=== PATIENT | male | born 1965 | race African-American/Black ===

== ENCOUNTER 2023-09-29 16:01 | Emergency (ER) | payer SELFPAY ==
[2023-09-29 16:16] VITALS: BP 168/103
[2023-09-29 16:18] LABS: Glucose - Point of Care 111 mg/dl (70-99)
[2023-09-29 16:29] VITALS: BP 161/97
[2023-09-29 16:38] LABS: % Basophils 0.7 % (0-2); % Eosinophils 3.7 % (0-6); % Immature Granulocytes 0.3 % (0-0.5); % Lymphocytes 48.8 % (20.5-51.1); % Monocytes 10.2 % (1.7-9.3); % Neutrophils 36.3 % (42.2-75.2); Absolute Basophils 0.1 10^3/uL (0-0.2); Absolute Eosinophils 0.3 10^3/uL (0-0.7); Absolute Lymphocytes 3.5 10^3/uL (1.2-3.4); Absolute Monocytes 0.7 10^3/uL (0.1-0.6); Absolute Neutrophils 2.6 10^3/uL (1.4-6.5); Hematocrit 37.7 % (39.0-52.0); Hemoglobin 13.1 g/dL (13.0-18.0); Mean Corp Hgb Conc. 34.7 g/dL (33.0-37.0); Mean Corpuscular Hgb 30.2 pg (27.0-31.0); Mean Corpuscular Volume 86.9 fL (80.0-94.0); Mean Platelet Volume 9.2 fL (7.4-10.4); Nucleated Red Blood Cells % 0 % (-); Platelet Count 250 10^3/uL (130-400); Red Blood Cell Count 4.34 10^6/uL (4.70-6.10); Red Cell Dist. Width 14.1 % (11.5-14.5); White Blood Cell Count 7.2 10^3/uL (4.8-10.8)
[2023-09-29 16:46] LABS: ALT (SGPT) 17 U/L (0-50); AST (SGOT) 24 U/L (17-59); Albumin 3.6 g/dl (3.5-5.0); Alkaline Phosphatase 58 U/L (38-126); Blood Urea Nitrogen 21 mg/dl (9-20); Calcium 9.8 mg/dl (8.4-10.2); Carbon Dioxide 30 mmol/L (22-30); Chloride 102 mmol/L (98-107); Glucose 104 mg/dl (70-99); Potassium 3.9 mmol/L (3.5-5.1); Sodium 135 mmol/L (135-145); Total Bilirubin 0.4 mg/dl (0.2-1.3); Total Protein 6.3 g/dl (6.3-8.2); eGFR > 60.00
[2023-09-29 16:57] VITALS: BP 163/97
--- NOTE | 2023-09-29 17:00 | ED.GENMED ---
History of Present Illness
General
Chief Complaint: Crisis Evaluation
Source: patient and other ([employer]ist's)
Exam Limitations: none
Time Seen by Provider: 09/29/23 16:16
History of Present Illness
History of Present Illness:
58-year-old male who was transported from [place] up to long term in [facility] and was seen by the long term staff and realized his blood pressure was high he was sent to Emergency Department for evaluation. Patient reports no complaints. He states
he has history of insulin-dependent diabetes. The patient states that he has blood pressure checked recently at the other long term in [place] and was never told anything about it. Patient specifically denies chest pain or shortness of breath. No
urinary changes. No headache
Past History
Past History
ED Past Medical History: IDDM
Phy Exam
Physical Exam
Physical Exam:
Exam: Awake alert and oriented, no respiratory distress, heart regular without murmur, lungs clear, no focal motor deficits, skin normal, no apparent distress.
Course
Orders/Labs/Results
Orders:
Orders
09/29/23 16:18
Electrocardiogram (*1) Urgent
Reason for Study: Hypertension, Benign
EKG- Treatment ONCE
09/29/23 16:24
CMP [Comprehensive Metabolic Panel] Urgent
Complete Blood Count/With Diff Urgent
Abnormal Lab Results
09/29/23 [id number]
16:16 16:24
RBC 4.34 L 10^6/uL
(4.70-6.10)
Hct 37.7 L %
(39.0-52.0)
Absolute Lymphs (auto) 3.5 H 10^3/uL
(1.2-3.4)
Absolute Monos (auto) 0.7 H 10^3/uL
(0.1-0.6)
Neutrophils % 36.3 L %
(42.2-75.2)
Monocytes % 10.2 H %
(1.7-9.3)
BUN 21 H mg/dl
(9-20)
Glucose 104 H mg/dl
(70-99)
POC Glucose 111 H mg/dl
(70-99)
09/29/23 16:24
09/29/23 16:24
Vital Signs
Initial and Last Documented VS:
Initial Vital Signs
Temp Pulse Resp Pulse Ox
98.1 F 71 16 100
09/29/23 16:11 09/29/23 16:11 09/29/23 16:11 09/29/23 16:11
Last Documented Vital Signs
Temp Pulse Resp BP Pulse Ox
98.1 F 71 16 163/97 100
09/29/23 16:11 09/29/23 16:11 09/29/23 16:11 09/29/23 16:57 09/29/23 16:11
MDM/Problems Addressed
MDM/Problems Addressed:
Uncontrolled hypertension
*Pulse Oximetry
Patient hypoxic: no
*EKG
Interpreted by ED Provider?: Yes
Interpretation: normal
Rate: normal
Rhythm: sinus
[place]ray: normal axis
Interval: normal interval
QRS Pattern: normal QRS
Ischemia: no ischemia
*Casino Controller Interpretation
Rate: normal
Interpretation: normal
Rhythm: sinus
*Critical Care Note
Total Time (30-74mins, 75-104mins- exclusive of procedures): Not Applicable
Data Reviewed
Source: patient
Prescriptions/Medications Considered But Not Given:
Consider antihypertensives but given the patient's acuity regarding his incarceration, will advise close follow-up with long term staff. Okay for incarceration
ED Attending Note
-
Portions of this chart may have been created with voice recognition software.� Occasional wrong word or��sound alike� substitutions may have occurred due to the inherent limitations of voice recognition software.
Discharge Plan
Departure
Patient Disposition: Home (Routine Discharge)
Date of Disposition: 09/29/23
Time of Disposition: 17:01
Patient with high blood pressure during this ER visit?: Yes
Discharge Problem:
Uncontrolled hypertension
Instructions: BLOOD PRESSURE
Activity Restrictions/Additional Instructions:
You are cleared for incarceration. Please have medical staff recheck your blood pressure tomorrow and manage as appropriate. Return daily for chest pain, shortness of breath, weakness of any kind or any other concerns.
Interventions
Interventions:
*Risk Screen - Suicide Last Done: 09/29/23 16:11
*General Assessment Last Done: 09/29/23 16:11
*Neglect/Abuse Screening Last Done: 09/29/23 16:11
ED- Fall Risk Assessment Last Done: 09/29/23 16:11
*ED COVID-19 Vaccine History Last Done: 09/29/23 17:09
*Nursing Disposition Last Done: 09/29/23 17:09
ED-Psychological Assessment Last Done: 09/29/23 17:09
Discharge Date and Time
Print Language: [place]IZ[place]
== END 2023-09-29 17:09 | disposition home or self-care (01) ==
LOC: EMR 16:01
PROVIDERS: EMERGENCY PHYSICIAN Emergency Medicine
DX: I10 Essential (primary) hypertension (principal); E11.9 Type 2 diabetes mellitus without complications
CPT/HCPCS: 99283; 80053; 82962; 85025; 93005